=== PATIENT | male | born 1965 | race Two or more races ===

== ENCOUNTER 2022-03-27 16:26 | Inpatient (IN) | payer OTHER, SELFPAY ==
[2022-03-27] VITALS (15 sets, daily range): BP systolic 117–192; BP diastolic 88–116; PULSE 81–98; RESP 12–86; TEMP 36.7–36.9; O2SAT 95–98; BMI 33.5
--- NOTE | ~2022-03-27 | MR_ITS ---
MRI OF THE BRAIN WITHOUT IV CONTRAST INDICATION: Stroke post TPA COMPARISON: Head CT and CTA head and neck 03/27/2022. TECHNIQUE: Multiplanar multisequence MR imaging of the brain was obtained without IV contrast. FINDINGS: There are small acute infarcts within the posterior limb of the right internal capsule and possibly the right insular ribbon. Mild chronic microangiopathy. No mass effect and no hemorrhagic transformation. There is no hydrocephalus, extra-axial surface collection, or herniation. The major flow voids at the skull base are preserved. There is no intracranial hemorrhage on the gradient recalled echo acquisition. The midline structures are normal. The cerebellar tonsils are normally positioned. The cerebellum and brainstem are normal. The craniocervical junction is normal. Osseous marrow signal intensity is homogenous. The visualized soft tissues are unremarkable. MR/MR head/brain wo con IMPRESSION: - There are small acute infarcts within the posterior limb of the right internal capsule and possibly the right insular ribbon. No mass effect and no hemorrhagic transformation. - Mild chronic microangiopathy.
--- NOTE | ~2022-03-27 | XR_ITS ---
EXAMINATION: XR TIBIA AND FIBULA, RIGHT CLINICAL INFORMATION: Pre-MRI foreign body evaluation COMPARISON: None TECHNIQUE: AP and lateral views of the right tibia and fibula were obtained. FINDINGS: There is a 5 mm radiopaque metallic density lateral to the right proximal fibula. This is from remote injury as a child. No additional radiopaque density seen. No visible fracture or dislocation seen. No bony abnormality. XR/XR tibia fibula RT 2V IMPRESSION: 5 mm radiopaque metallic density lateral to the proximal right fibula.
--- NOTE | ~2022-03-27 | CT_ITS ---
EXAMINATION: CT ANGIOGRAM NECK WITH CONTRAST CT ANGIOGRAM BRAIN WITH CONTRAST CLINICAL INFORMATION: Left-sided deficits. Weakness and trouble with speech. COMPARISON: Head CT 03/27/2022. TECHNIQUE: Test bolus sequences followed by intravenous administration 100 mL of Omnipaque 350. Helical imaging was performed in the axial plane from the thoracic inlet to the skull vertex. Delayed postcontrast images were also acquired. The data was processed at the biochemistry technologist workstation for generation of MIP sequences. Angled MIPs and volume rendered reformatted images were also generated at an offline 3D workstation. Stenoses are assessed in accordance with NASCET criteria unless otherwise indicated. This CT examination was performed using dose optimization techniques as appropriate, variously including the following: *Automated exposure control *Adjustment of mA and/or kV according to patient size (this includes techniques or standardized protocols for targeted exams where dose is matched to indication/reason for exam; i.e. extremities or head) *Use of iterative reconstruction technique DLP: 1848 mGy-cm FINDINGS: Head CT: There is no intracranial hemorrhage, large acute infarction, or mass lesion. The ventricles are normal in size and configuration without evidence of hydrocephalus. There is no abnormal enhancement. Mild hypoattenuation is seen within the cerebral white matter, most compatible with mild chronic microangiopathy. There is a large defect within the nasal septum. Mild paranasal sinus mucosal thickening is noted. Neck CTA: Atheromatous changes are seen involving the aortic arch. The great vessel origins are patent. Both carotid bifurcations are patent. Both cervical ICA segments are patent. Atheromatous changes are seen at the carotid siphons without significant stenosis. The left vertebral artery is dominant. Both vertebral arteries are patent. Head CTA: Significant atheromatous changes are seen involving the left vertebral artery resulting in severe stenosis. The hypoplastic right vertebral artery also demonstrates severe stenosis with nonopacification/occlusion at the vertebrobasilar junction. The basilar artery appears patent. There is left SCOOPER. Both systems technologist are patent. The bilateral ACAs and MCAs are patent with symmetric collaterals. No aneurysm is seen. Non-vascular findings: Multilevel degenerative changes are seen within the spine. There is a subcentimeter nodule in the right lobe of the thyroid gland (no ultrasound recommended based on size criteria). The cervical soft tissues are otherwise within normal limits. CT/CT angio head neck stroke IMPRESSION: CT head: No intracranial hemorrhage or large acute infarction. CTA neck: No hemodynamically significant stenosis in the major arteries of the neck. 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 Basilar artery is patent. systems technologist are patent. No evidence of ICA occlusion. Anterior circulation is patent. This critical result was discussed with Dr. Serrano on 03/27/2022 5:53 PM, and it was ascertained that the content and urgency of the report was understood at the time of direct communication.
--- NOTE | ~2022-03-27 | CT_ITS ---
EXAMINATION: CT HEAD WITHOUT CONTRAST (STROKE PROTOCOL) CLINICAL INFORMATION: Stroke protocol. Slurred speech. Left-sided weakness. COMPARISON: None TECHNIQUE: Contiguous axial imaging was performed from the skull base to vertex without intravenous administration of contrast. This CT examination was performed using dose optimization techniques as appropriate, variously including the following: *Automated exposure control *Adjustment of mA and/or kV according to patient size (this includes techniques or standardized protocols for targeted exams where dose is matched to indication/reason for exam; i.e. extremities or head) *Use of iterative reconstruction technique DLP: 780 mGy-cm FINDINGS: There is no evidence of acute intracranial hemorrhage or territorial infarction. No abnormal mass-effect or midline shift is seen. [place] to white matter differentiation is well preserved. No extra-axial fluid collections are identified. There is generalized global volume loss. There is mild prominence of the ventricles and the sulci . There is mild hypodensity of the periventricular white matter due to chronic small vessel ischemic disease. There are vascular calcifications of the internal carotid arteries bilaterally. There is no abnormal attenuation within the brain parenchyma. There is no osseous abnormality. The mastoid air cells and visualized portions of the paranasal sinuses are well-aerated. CT/CT head for stroke IMPRESSION: No acute intracranial pathology. This critical result was discussed with Marciano Quinones at 1730 hours on 03/27/2022. It was ascertained that the content and urgency of the report was understood at the time of direct communication.
--- NOTE | ~2022-03-27 | XR_ITS ---
EXAMINATION: XR CHEST CLINICAL INFORMATION: Stroke. COMPARISON: None TECHNIQUE: Frontal portable view of the chest was obtained. 1738 hours FINDINGS: Lungs are clear. No pulmonary vascular congestion. There is no pleural effusion. The heart size is normal. The cardiac and mediastinal contours are normal. There are calcifications of the thoracic aorta. There are multilevel degenerative changes of dorsal spine. XR/XR chest 1V IMPRESSION: Unremarkable examination.
[2022-03-27 17:10] LABS: Glucose, Whole Blood 445 mg/dL (60-115)
--- NOTE | 2022-03-27 17:10 | ECG_ITS ---
Test Reason : STROKE Blood Pressure : / mmHG Vent. Rate : 091 BPM Atrial Rate : 091 BPM P-R Int : 194 ms QRS Dur : 134 ms QT Int : 386 ms P-R-T Axes : 035 -70 022 degrees QTc Int : 474 ms Normal sinus rhythm Left axis deviation Right bundle branch block Minimal voltage criteria for LVH, may be normal variant ( R in aVL ) Inferior infarct , age undetermined Abnormal ECG No previous ECGs available Referred By: Marciano Serrano Electronically Signed By:JAIME PICKARD
--- NOTE | 2022-03-27 17:17 | ED_ITS ---
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 This started around 1400 hours. Patient has no history of stroke he is diabetic Blood sugar is high. He denies cough fever chest pain nausea vomiting or diarrhea. Patient denies headache or falls. He continues to have left arm leg and speech issues. Onset (ago): hour(s) Related Data Allergies Allergy/AdvReac Type Severity Reaction Status Date / Time No Known Allergies Allergy Verified 03/27/22 17:10 COUNT INCLUDES THE [facility] Past Medical History Medical History (Updated 03/27/22 @ 19:08 by Marciano Serrano DO) Diabetes Hypertension Social History Social History Alcohol intake: current Alcohol intake frequency: a few times a month Alcohol type: hard liquor Patient Tobacco Use Status: Current everyday Tobacco user Smoked in Last 30 Days: Yes Use of substances other than those prescribed or required for medical reasons: No Advance Directives: No Advance Directives Information Provided: No Physical Exam Vital Signs: Vital Signs: Last Vital Signs Temp 98.4 F 03/27/22 17:49 Pulse 87 03/27/22 18:51 Resp 16 03/27/22 18:51 BP 178/103 H 03/27/22 18:51 Pulse Ox 96 03/27/22 18:51 O2 Del Method 03/27/22 18:51 BMI result Body Mass Index 33.5 Neurological exam: CN II- XII tested. Patient is alert and oriented to person place and time. Patient has no dysphagia or dysarthia, denies good vision in all four vision betts no nystagmus on exam,PATIENT WITH OBVIOUS WEAKNESS TO LEFT ARM AND LEG SOME EFFORT AGAINSTwith normal reflexes to brachioradialis, wrist, patella and achilles.? Negative romberg, good finger to nose and heel to bartlett.?? General: Well-appearing well-nourished in no signs of distress HEENT: Normocephalic atraumatic? Neck: No signs of JVD, no masses no tenderness or lymphadenopathy Cardiovascular: Regular rate and rhythm Respiratory: Clear to auscultation bilaterally Abdomen: Soft nontender no masses Extremities: Normal pedal pulses no signs of edema Skin: Dry warm no rashes Back: No tenderness full ROM MDM - Neuro Symptoms/Deficit MDM Narrative Medical decision making narrative: Patient with acute stroke came in as a hyperglycemia for EMs after they found the elevated blood sugar they stopped looking for stroke symptoms while the patients symptoms persisted. He was seen and I immediately wheeled the patient over for CT CTA and will do a complete stroke workup. Symptoms started at 1400 and the patient arrived within the 90 minute window he has no contraindications for stroke. Patient still in the window for stroke I went over the risks and benefits of treatment he states the symptoms started on 1430 after initially stating it was 1400. I think if that is true they are in the 90 minute window TPA was ordered I went over the risks and benefits. 1733 I spoke with [facility] who stated no bleeding on non contrast CT I explained to him I was giving TPA he stated it was safe. [address] Liriano from Neurology who agreed TPA was indicated in this patient. 1745 Patient and family agreed to TPA after CT BP is elevated to 190 I will start on labetol IV at this time. 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 I explained this to the patient and family. 1756 After Labetelol BP within range to give TPA we will initiate at this time. [address]'s okay BP improved. I discussed the case with Eric Sterling in the ICU who accepted the patient. Differential Diagnosis Differential diagnosis: Likely cerebrovascular accident and transient cerebral ischemia Medical Records Attestation: I reviewed the patient's medical records. Lab Data Attestation: I reviewed the patient's lab results. Result diagrams: 03/27/22 17:49 03/27/22 17:49 Labs: Lab Results 03/27/22 03/27/22 03/27/22 Range/Units 17:06 17:43 17:49 WBC 6.7 (4.8-10.8) X10*3/uL RBC 5.59 (4.60-5.80) X10*6/uL Hgb 16.4 (14.0-18.0) g/dl Hct 45.5 (42.0-52.0) % MCV 81.4 (80.0-98.0) fL MCH 29.3 (27.0-33.0) pg MCHC 36.0 (31.0-36.0) g/dl RDW 11.8 (11.0-16.0) % Plt Count 203 (160-400) X10*3/uL MPV 8.6 L (9.4-12.4) fL Immature Gran % (Auto) 0.3 (0.0-0.4) % Neut % (Auto) 71.7 (45-73) % Lymph % (Auto) 15.8 L (20-40) % [place] % (Auto) 6.4 (2-11) % Eos % (Auto) 5.1 H (0-4) % Baso % (Auto) 0.7 (0-2) % Lymph # (Auto) 1.1 L (1.2-4.9) X10*3/uL [place] # (Auto) 0.4 (0.1-1.2) X10*3/uL Eos # (Auto) 0.3 (0.0-0.4) X10*3/uL Baso # (Auto) 0.1 (0.0-0.2) X10*3/uL Abs Immat Gran (auto) 0.02 (0.00-0.03) X10*3/uL Absolute Neuts (auto) 4.8 (2.0-8.3) x10*3/uL Absolute Nucleated RBC 0.000 (0.0-0.012) X10*3/uL Nucleated RBC % (auto) 0.0 (0.0-0.2) /100WBC PT (10.0-13.1) SEC Whole Blood PT 12.5 (11.1-13.5) sec INR (0.9-1.1) Whole Blood INR 1.0 (0.9-1.1) APTT (26.0-36.4) SEC Sodium (135-145) mmol/L Potassium (3.3-5.1) mmol/L Chloride (96-108) mmol/L Carbon Dioxide (22-29) mmol/L Anion Gap (12-20) BUN (9-16) mg/dL Creatinine (0.5-1.4) mg/dL Estim Creat Clear Calc Estimated GFR POC Glucose 445 H* (60-115) mg/dL Random Glucose (60-115) mg/dL Calcium (8.4-10.2) mg/dL Magnesium (1.6-2.6) mg/dL Total Bilirubin (0.0-1.0) mg/dL Direct Bilirubin (0.0-0.5) mg/dL AST (5-37) U/L ALT (0-40) U/L Alkaline Phosphatase (39-117) U/L Total Creatine Kinase (38-174) U/L Troponin I High Sens (<3.5-35.0) ng/L Total Protein (6.5-8.0) g/dL Albumin (3.5-5.0) g/dL Urine Color Urine Appearance Urine pH (5.0-9.0) Ur Specific [place] (1.005-1.025) Urine Protein (Neg-Trace) mg/dL Urine Glucose (UA) (Negative) mg/dL Urine Ketones (Negative) mg/dL Urine Blood (Negative) Urine Nitrite (Negative) Ur Leukocyte Esterase (Negative) Urine RBC (0-2) /HPF Urine WBC (0-5) /HPF Ur Squamous Epith Cells (0-2) /HPF Urine Bacteria (None Seen) Hyaline Casts (0-2) /LPF 03/27/22 03/27/22 03/27/22 Range/Units 17:49 17:49 17:49 WBC (4.8-10.8) X10*3/uL RBC (4.60-5.80) X10*6/uL Hgb (14.0-18.0) g/dl Hct (42.0-52.0) % MCV (80.0-98.0) fL MCH (27.0-33.0) pg MCHC (31.0-36.0) g/dl RDW (11.0-16.0) % Plt Count (160-400) X10*3/uL MPV (9.4-12.4) fL Immature Gran % (Auto) (0.0-0.4) % Neut % (Auto) (45-73) % Lymph % (Auto) (20-40) % [place] % (Auto) (2-11) % Eos % (Auto) (0-4) % Baso % (Auto) (0-2) % Lymph # (Auto) (1.2-4.9) X10*3/uL [place] # (Auto) (0.1-1.2) X10*3/uL Eos # (Auto) (0.0-0.4) X10*3/uL Baso # (Auto) (0.0-0.2) X10*3/uL Abs Immat Gran (auto) (0.00-0.03) X10*3/uL Absolute Neuts (auto) (2.0-8.3) x10*3/uL Absolute Nucleated RBC (0.0-0.012) X10*3/uL Nucleated RBC % (auto) (0.0-0.2) /100WBC PT 10.9 (10.0-13.1) SEC Whole Blood PT (11.1-13.5) sec INR 1.0 (0.9-1.1) Whole Blood INR (0.9-1.1) APTT 30.6 (26.0-36.4) SEC Sodium 136 (135-145) mmol/L Potassium 4.0 (3.3-5.1) mmol/L Chloride 97 (96-108) mmol/L Carbon Dioxide 30 H (22-29) mmol/L Anion Gap 13 (12-20) BUN 5 L (9-16) mg/dL Creatinine 1.18 (0.5-1.4) mg/dL Estim Creat Clear Calc 85.6 Estimated GFR > 60 POC Glucose (60-115) mg/dL Random Glucose 435 H* (60-115) mg/dL Calcium 8.9 (8.4-10.2) mg/dL Magnesium 1.9 (1.6-2.6) mg/dL Total Bilirubin 0.6 (0.0-1.0) mg/dL Direct Bilirubin 0.3 (0.0-0.5) mg/dL AST 20 (5-37) U/L ALT 20 (0-40) U/L Alkaline Phosphatase 113 (39-117) U/L Total Creatine Kinase 61 (38-174) U/L Troponin I High Sens 19.3 (<3.5-35.0) ng/L Total Protein 6.4 L (6.5-8.0) g/dL Albumin 3.8 (3.5-5.0) g/dL Urine Color Urine Appearance Urine pH (5.0-9.0) Ur Specific [place] (1.005-1.025) Urine Protein (Neg-Trace) mg/dL Urine Glucose (UA) (Negative) mg/dL Urine Ketones (Negative) mg/dL Urine Blood (Negative) Urine Nitrite (Negative) Ur Leukocyte Esterase (Negative) Urine RBC (0-2) /HPF Urine WBC (0-5) /HPF Ur Squamous Epith Cells (0-2) /HPF Urine Bacteria (None Seen) Hyaline Casts (0-2) /LPF 03/27/22 Range/Units 18:23 WBC (4.8-10.8) X10*3/uL RBC (4.60-5.80) X10*6/uL Hgb (14.0-18.0) g/dl Hct (42.0-52.0) % MCV (80.0-98.0) fL MCH (27.0-33.0) pg MCHC (31.0-36.0) g/dl RDW (11.0-16.0) % Plt Count (160-400) X10*3/uL MPV (9.4-12.4) fL Immature Gran % (Auto) (0.0-0.4) % Neut % (Auto) (45-73) % Lymph % (Auto) (20-40) % [place] % (Auto) (2-11) % Eos % (Auto) (0-4) % Baso % (Auto) (0-2) % Lymph # (Auto) (1.2-4.9) X10*3/uL [place] # (Auto) (0.1-1.2) X10*3/uL Eos # (Auto) (0.0-0.4) X10*3/uL Baso # (Auto) (0.0-0.2) X10*3/uL Abs Immat Gran (auto) (0.00-0.03) X10*3/uL Absolute Neuts (auto) (2.0-8.3) x10*3/uL Absolute Nucleated RBC (0.0-0.012) X10*3/uL Nucleated RBC % (auto) (0.0-0.2) /100WBC PT (10.0-13.1) SEC Whole Blood PT (11.1-13.5) sec INR (0.9-1.1) Whole Blood INR (0.9-1.1) APTT (26.0-36.4) SEC Sodium (135-145) mmol/L Potassium (3.3-5.1) mmol/L Chloride (96-108) mmol/L Carbon Dioxide (22-29) mmol/L Anion Gap (12-20) BUN (9-16) mg/dL Creatinine (0.5-1.4) mg/dL Estim Creat Clear Calc Estimated GFR POC Glucose (60-115) mg/dL Random Glucose (60-115) mg/dL Calcium (8.4-10.2) mg/dL Magnesium (1.6-2.6) mg/dL Total Bilirubin (0.0-1.0) mg/dL Direct Bilirubin (0.0-0.5) mg/dL AST (5-37) U/L ALT (0-40) U/L Alkaline Phosphatase (39-117) U/L Total Creatine Kinase (38-174) U/L Troponin I High Sens (<3.5-35.0) ng/L Total Protein (6.5-8.0) g/dL Albumin (3.5-5.0) g/dL Urine Color Yellow Urine Appearance Clear Urine pH 7.0 (5.0-9.0) Ur Specific [place] >= 1.030 H (1.005-1.025) Urine Protein Negative (Neg-Trace) mg/dL Urine Glucose (UA) >=1000 H (Negative) mg/dL Urine Ketones Negative (Negative) mg/dL Urine Blood Negative (Negative) Urine Nitrite Negative (Negative) Ur Leukocyte Esterase Negative (Negative) Urine RBC 0-2 (0-2) /HPF Urine WBC 0-5 (0-5) /HPF Ur Squamous Epith Cells 0-2 (0-2) /HPF Urine Bacteria None Seen (None Seen) Hyaline Casts 0-2 (0-2) /LPF ECG Data Attestation: I personally reviewed and interpreted this ECG as follows: NIH Stroke Scale Internal: Initial- Upon Arrival Level of Consciousness: Alert Level of Consciousness Questions: Answers both questions correctly Level of Consciousness Commands: Performs both tasks correctly Best Gaze: Normal Visual: No visual loss Facial Palsy: Normal Motor Arm (Right): No drift Motor Arm (Left): Some effort against gravity Motor Leg (Right): No drift Motor Leg (Left): Some effort against gravity Limb Ataxia: Present in two limbs Sensory: Mild to moderate sensory loss Best Language: Mild to moderate aphasia Dysarthia: Mild to moderate dysarthria Extinction and Inattention: No abnormality Score: 9 Critical Care Time Critical Care Time Critical Care Time: Yes Total Critical Care Time: 85 Attestation: Acute CVA with changed speech, left arm and leg weakness. Spoke with Neurology radiology about stroke and CT reads. BP controlled emergently and I went over TPA indication contraindications and intiated within the window. Disposition with ICu Discharge Plan Discharge Clinical Impression: Left-sided sensory deficit present, Acute left-sided weakness, Difficulty with speech, Dysarthria, Acute stroke due to ischemia Patient Disposition: Admitted as Observation
[2022-03-27] MEDS: iohexoL 350 MG/ML 100 ML INFUS..BTL IV (17:28)
[2022-03-27] MEDS: Labetalol HCL 100 MG/20 ML VIAL 20 MG IVPUSH (17:50)
[2022-03-27 17:59] LABS: MANUAL DIFF FLAG NO
[2022-03-27 18:02] LABS: Basophils Absolute Auto 0.1 X10*3/uL (0.0-0.2); Basophils Percent Auto 0.7 % (0-2); Eosinophils Absolute Auto 0.3 X10*3/uL (0.0-0.4); Eosinophils Percent Auto 5.1 % (0-4); Hematocrit 45.5 % (42.0-52.0); Hemoglobin 16.4 g/dl (14.0-18.0); Imm Gran Abs Auto 0.02 X10*3/uL (0.00-0.03); Imm Gran Pct Auto 0.3 % (0.0-0.4); Lymphocytes Absolute Auto 1.1 X10*3/uL (1.2-4.9); Lymphocytes Percent Auto 15.8 % (20-40); Mean Corpuscular Hemoglobin 29.3 pg (27.0-33.0); Mean Corpuscular Volume 81.4 fL (80.0-98.0); Mean Platelet Volume 8.6 fL (9.4-12.4); Monocytes Absolute Auto 0.4 X10*3/uL (0.1-1.2); Monocytes Percent Auto 6.4 % (2-11); Neutrophils Absolute Auto 4.8 x10*3/uL (2.0-8.3); Neutrophils Percent Auto 71.7 % (45-73); Platelet Count 203 X10*3/uL (160-400); Red Blood Count 5.59 X10*6/uL (4.60-5.80); Red Cell Distribution Width 11.8 % (11.0-16.0); White Blood Count 6.7 X10*3/uL (4.8-10.8)
[2022-03-27 18:03] LABS: Prothrombin Time Whole Bld POC 12.5 sec (11.1-13.5)
[2022-03-27 18:09] LABS: Prothrombin Time 10.9 SEC (10.0-13.1)
[2022-03-27 18:12] LABS: Partial Thromboplastin Time 30.6 SEC (26.0-36.4)
--- NOTE | 2022-03-27 18:14 | PC.NURSE ---
pt a&ox3, pt to CT per stroke protocol, hypertensive, 20G IV left AC placed by EMS, given labetalol per provider order, bp within t-PA parameters after administration, t-PA bolus given on 1 min, infusion running over 60 min. labs drawn by tech, no new orders at this time.
[2022-03-27 18:16] LABS: Stroke Lab Use COMPLETE
[2022-03-27 18:25] LABS: Alanine Aminotransferase 20 U/L (0-40); Albumin Level 3.8 g/dL (3.5-5.0); Alkaline Phosphatase 113 U/L (39-117); Anion Gap 13 (12-20); Aspartate Amino Transferase 20 U/L (5-37); Bilirubin Direct 0.3 mg/dL (0.0-0.5); Bilirubin Total 0.6 mg/dL (0.0-1.0); Blood Urea Nitrogen 5 mg/dL (9-16); Calcium 8.9 mg/dL (8.4-10.2); Carbon Dioxide 30 mmol/L (22-29); Chloride 97 mmol/L (96-108); Creatinine Clr Calc Pharmacy 85.6; Estimated Glomerular Filt Rate > 60; Glucose Random 435 mg/dL (60-115); Magnesium 1.9 mg/dL (1.6-2.6); Sodium 136 mmol/L (135-145); Total Protein 6.4 g/dL (6.5-8.0); Troponin-I High Sensitivity 19.3 ng/L (<3.5-35.0)
[2022-03-27 18:40] LABS: Appearance Urine Clear; Color Urine Yellow; Glucose Urine UA >=1000 mg/dL (Negative); Leukocyte Esterase Urine Negative (Negative); Nitrite Urine Negative (Negative); Specific Gravity - Urine >= 1.030 (1.005-1.025); UMIC TRIGGER UACC YES; Urine Blood Negative (Negative); Urine Ketones Negative (Negative); Urine Protein Negative (Neg-Trace)
[2022-03-27 18:49] LABS: Bacteria Urine None Seen (None Seen); Hyaline Casts Urine 0-2 /LPF (0-2); RBC Urine 0-2 /HPF (0-2); Squamous Epithelial Cell Urine 0-2 /HPF (0-2); WBC Urine 0-5 /HPF (0-5)
[2022-03-27] MEDS: Insulin Lispro 100 UNIT/ML 3 ML VIAL SUBCUT (19:11)
[2022-03-27] MEDS: 0.9 % Sodium Chloride 1,000 ML 999 ML IVCONT ×2 (19:12→20:03)
--- NOTE | 2022-03-27 19:31 | PHA.MEDREC ---
MED REC COMPLETE, PATIENT NOT ON ANY MEDICATIONS. HE DOES NOT CURRENTLY HAVE A PRIMARY CARE DOCTOR AND WILL NEED TO OBTAIN ONE Pharmacy Consult ? Medication Reconciliation Pharmacy has completed the medication reconciliation.
--- NOTE | 2022-03-27 20:37 | PM.CCHP ---
History of Present Illness Date of Service: 03/27/22 Attending physician on admission: Magno Brown Chief Complaint: Ischemic stroke post tPA HPI: ?56-year-old Patient with underlying history of hypertension, hyperlipidemia, diabetes, noncompliance with medication intake or medical care, who has a 40 pack-year history of tobacco consumption, drinks alcohol on the weekends, presents to us after being seen in the emergency room.? 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 The patient drove from [place] to [place] and went home feeling this way even though he had difficulty lifting the left upper extremity as well as the left lower extremity.? His sister noticed that he was not himself and called 911.? The patient was transferred via EMS to the hospital, he arrived around 17:00 his blood pressure was slightly elevated receive labetalol. ?His workup included a CT scan of the head, CTA head and neck all of which showed no hemorrhage and no large emboli.? At the time the NIH score was 8.? Dr. Napier was consulted the patient received tPA at 17:56.? His blood sugar was over 400, he was given IV insulin. ? Since tPA administration, the patient has being significantly better, he states that his strength has come back he feels much better than before.? During my interview the patient denies any double or blurred vision, headache, no more numbness or tingling, no trouble speaking, denies any other symptomatology at this point as described below.? He does admit that he is noncompliant with his medications, he continues to drink on the weekends and smokes daily. ? Review of systems: As above, otherwise the patient denies any prior history of strokes, cold intolerance, migraine headaches, head trauma, no eyes, ears or nose problems, no problems swallowing or with phonation, no thyroid disease, denies any history of chest pain, palpitations, coronary disease, cough, sputum production, pneumonia, bronchitis, COPD or emphysema, abdominal pain, nausea, vomiting, diarrhea, abdominal surgeries, melena, hematochezia, hematemesis, hematuria, kidney stones, liver problems, immunocompromise state of any kind, no history of DVT or PE, leg edema, fractures or extremity surgeries all other review of systems were reviewed and they were all negative. Past Medical History:? As above Past Surgical History:? None Family history:? Noncontributory for coronary disease, diabetes, hypertension, strokes or cancer. Social History:? Lives at home, has a 30 pack-year history of tobacco consumption, still smokes a pack a day.? Drinks 6-8 nips on the weekends.? Denies drugs. CODE STATUS: FULL CODE Allergies: NKDA Home Medications: See Med Rec PHYSICAL EXAM: VS: ?146/110, 85, 14, 96 % on room air. General:? Alert oriented x3 no acute distress.? Speaking full sentences.? Speech is well articulated, thought process is coherent.? Following all commands.? There is no dysarthria. Skin:? Intact, no lesions, edema, erythema, clubbing or cyanosis.? No ulcers. HEENT: ?No facial drooping appreciated, Head is normocephalic, atraumatic, pupils equal round reactive to light accommodation bilaterally.? Extraocular movements appear intact.? Visual betts by confrontation are equal bilaterally without deficits.? Buccal mucosa is moist, tongue protrudes midline with slight deviation of the tip towards the left., Neck is supple without lymphadenopathy. Cardiac:? Clear S1-S2, no murmurs rubs or gallops. Pulmonary:? Clear to auscultation, no wheezes, rales or rhonchi. Abdomen:? Protuberant, positive bowel sounds in all 4 quadrants.? Soft, nontender, no rebound or guarding.? Musculoskeletal:? Moving all 4 extremities upon request a major joints, there is no crepitus or tenderness.? The strength is 5/5 bilaterally and throughout all 4 extremities.? There is no leg edema , no calf tenderness , no leg asymmetry.? His still having difficulty standing he does show weakness upon trying to bear weight with the left lower extremity.? Walking was not attempted at this point. Neurologic:? As above, cranial nerves 2-12 are grossly intact.? He does however have difficulty standing as above mentioned.? Coordination is also impaired with the left upper extremity upon [id number] test, to a lesser degree with [id number].? Sensation is intact throughout whole body with sharp and dull. Vascular:? 2+ pulses upper and lower extremities distally. SIGNIFICANT LABORATORY DATA:? White blood cells 6.7, hemoglobin 16.4, hematocrit 45.5, platelets 203, INR 1.0.? Sodium 136, potassium 4.0, chloride 97, carbon dioxide 30, anion gap 13, BUN 5, creatinine 1.18.? Random glucose 435.? Liver function within normal limits.? Magnesium 1.9.? Troponin 19.3. ? 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 Basilar artery is patent. justice court deputy clerk are patent. No evidence of ICA occlusion. Anterior circulation is patent.? No hemodynamically significant stenosis of the major arteries of the neck.? No intracranial hemorrhage or large acute infarction. EKG REVIEW: ?Sinus rhythm 91 beats per minute.? No ST elevations, no depressions.? Left axis deviation with criteria for right bundle-branch block.? Age-indeterminate changes in the inferior leads.? QTC 386.? No comparison. ASSESSMENT : 1. Acute ischemic stroke with left-sided hemiparesis which has improved status post tPA 2. 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 Medical noncompliance 4. Uncontrolled hypertension and noncompliance 5. Uncontrolled diabetes mellitus type 2 with noncompliance 6. History of hyperlipidemia 7. Tobacco and alcohol abuse PLAN OF CARE: The patient has improved significantly, he will be transferred to the ICU for further monitoring and will follow post tPA protocol including liberalized blood pressure.? Swallow test to be done at bedside by nursing personnel and will start him on a statin.? No NSAIDs or aspirin related products for the next 24 hours.? MRI to follow 24 hours after tPA administration, transthoracic echo.? Will order hemoglobin A1c and place him on insulin sliding scale for now.? Maximize Lipitor, check lipid panel in the morning and LFTs. I had a lengthy discussion with the patient about his current situation and all the different risk factors that he takes including the medical noncompliance, tobacco and alcohol abuse, lifestyle changes were advise in detailed with the patient including weight loss, exercise, tobacco and alcohol consumption cessation which he stated ?I will think about it ?. Patient needs a primary care provider in the community as he does not have 1.? Eventually he will need to be restarted on a diabetic, hypertensive regimen. At this point he declined Nicoderm patches. GI PROPHYLAXIS: ?No needed DVT PROPHYLAXIS:? Pneumatic stockings only Critical care time used for critical evaluation of this patient, diagnosis, treatment and coordination of care, review her records and documentation TOTAL CRITICAL CARE TIME? 90? MIN . discussion and coordination with consultants, completely separate from any procedures performed. Patient's care was discussed in detail with Dr. Brown.? He is aware of all the above as well as the plan of care for this patient. [facility] Past Medical History Medical History (Updated 03/27/22 @ 19:08 by Marciano Serrano DO) Diabetes Hypertension Social History Social History Alcohol intake: current Alcohol intake frequency: a few times a month Alcohol type: hard liquor Patient Tobacco Use Status: Current everyday Tobacco user Smoked in Last 30 Days: Yes Use of substances other than those prescribed or required for medical reasons: No Advance Directives: No Advance Directives Information Provided: No Meds Allergies Allergy/AdvReac Type Severity Reaction Status Date / Time No Known Allergies Allergy Verified 03/27/22 17:10 Active Medications: Current Medications Atorvastatin Calcium (Atorvastatin Calcium 80 Mg Tablet) 80 mg PO BEDTIME DEMETRIS Dextrose (Dextrose 50 % 25 Gm/50 Ml Syringe) 25 gm IVPUSH Q15M PRN; Protocol PRN Reason: per Hypoglycemia Standing Ord. Glucose (Glucose Gel 15 Gm Gel..Gram.) 15 gm PO Q15M PRN; Protocol PRN Reason: per Hypoglycemia Standing Ord. Insulin Human Lispro (Insulin Lispro 100 Unit/Ml 3 Ml Vial) 0 unit SUBCUT Q6H DEMETRIS; Protocol Sodium Chloride (0.9 % Sodium Chloride Flush 3 Ml Syringe) 3 ml IVFLUSH QSHIFT [facility] Home Medications Medication Instructions Recorded Confirmed Last Taken Type No Known Home Meds 03/27/22 03/27/22 Unknown History Physical Exam Vital Signs: Vital Signs: Last Vital Signs Temp 98.4 F 03/27/22 17:49 Pulse 85 03/27/22 20:00 Resp 86 H 03/27/22 20:20 BP 179/106 H 03/27/22 20:20 Pulse Ox 95 03/27/22 20:20 O2 Del Method 03/27/22 20:20 BMI result Body Mass Index 33.5 Results Labs CBC and Chem 7: 03/27/22 17:49 03/27/22 17:49 Labs: Laboratory Results - last 24 hr 03/27/22 03/27/22 03/27/22 17:06 17:43 17:49 MCV 81.4 MCH 29.3 MCHC 36.0 RDW 11.8 Plt Count 203 MPV 8.6 L Immature Gran % (Auto) 0.3 Neut % (Auto) 71.7 Lymph % (Auto) 15.8 L [place] % (Auto) 6.4 Eos % (Auto) 5.1 H Baso % (Auto) 0.7 Lymph # (Auto) 1.1 L [place] # (Auto) 0.4 Eos # (Auto) 0.3 Baso # (Auto) 0.1 Abs Immat Gran (auto) 0.02 Absolute Neuts (auto) 4.8 Absolute Nucleated RBC 0.000 Nucleated RBC % (auto) 0.0 PT Whole Blood PT 12.5 INR Whole Blood INR 1.0 APTT Anion Gap Estim Creat Clear Calc Estimated GFR POC Glucose 445 H* Random Glucose Calcium Magnesium Total Bilirubin Direct Bilirubin AST ALT Alkaline Phosphatase Total Creatine Kinase Troponin I High Sens Total Protein Albumin Urine Color Urine Appearance Urine pH Ur Specific [place] Urine Protein Urine Glucose (UA) Urine Ketones Urine Blood Urine Nitrite Ur Leukocyte Esterase Urine RBC Urine WBC Ur Squamous Epith Cells Urine Bacteria Hyaline Casts 03/27/22 03/27/22 03/27/22 17:49 17:49 17:49 MCV MCH MCHC RDW Plt Count MPV Immature Gran % (Auto) Neut % (Auto) Lymph % (Auto) [place] % (Auto) Eos % (Auto) Baso % (Auto) Lymph # (Auto) [place] # (Auto) Eos # (Auto) Baso # (Auto) Abs Immat Gran (auto) Absolute Neuts (auto) Absolute Nucleated RBC Nucleated RBC % (auto) PT 10.9 Whole Blood PT INR 1.0 Whole Blood INR APTT 30.6 Anion Gap 13 Estim Creat Clear Calc 85.6 Estimated GFR > 60 POC Glucose Random Glucose 435 H* Calcium 8.9 Magnesium 1.9 Total Bilirubin 0.6 Direct Bilirubin 0.3 AST 20 ALT 20 Alkaline Phosphatase 113 Total Creatine Kinase 61 Troponin I High Sens 19.3 Total Protein 6.4 L Albumin 3.8 Urine Color Urine Appearance Urine pH Ur Specific [place] Urine Protein Urine Glucose (UA) Urine Ketones Urine Blood Urine Nitrite Ur Leukocyte Esterase Urine RBC Urine WBC Ur Squamous Epith Cells Urine Bacteria Hyaline Casts 03/27/22 18:23 MCV MCH MCHC RDW Plt Count MPV Immature Gran % (Auto) Neut % (Auto) Lymph % (Auto) [place] % (Auto) Eos % (Auto) Baso % (Auto) Lymph # (Auto) [place] # (Auto) Eos # (Auto) Baso # (Auto) Abs Immat Gran (auto) Absolute Neuts (auto) Absolute Nucleated RBC Nucleated RBC % (auto) PT Whole Blood PT INR Whole Blood INR APTT Anion Gap Estim Creat Clear Calc Estimated GFR POC Glucose Random Glucose Calcium Magnesium Total Bilirubin Direct Bilirubin AST ALT Alkaline Phosphatase Total Creatine Kinase Troponin I High Sens Total Protein Albumin Urine Color Yellow Urine Appearance Clear Urine pH 7.0 Ur Specific [place] >= 1.030 H Urine Protein Negative Urine Glucose (UA) >=1000 H Urine Ketones Negative Urine Blood Negative Urine Nitrite Negative Ur Leukocyte Esterase Negative Urine RBC 0-2 Urine WBC 0-5 Ur Squamous Epith Cells 0-2 Urine Bacteria None Seen Hyaline Casts 0-2 Imaging Radiologist's Impressions: Impressions Head CT 03/27/22 17:19 IMPRESSION: No acute intracranial pathology. This critical result was discussed with Marciano Quinones at 1730 hours on 03/27/2022. It was ascertained that the content and urgency of the report was understood at the time of direct communication. Head/Neck CTA 03/27/22 17:28 IMPRESSION: CT head: No intracranial hemorrhage or large acute infarction. CTA neck: No hemodynamically significant stenosis in the major arteries of the neck. 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 Basilar artery is patent. justice court deputy clerk are patent. No evidence of ICA occlusion. Anterior circulation is patent. This critical result was discussed with Dr. Serrano on 03/27/2022 5:53 PM, and it was ascertained that the content and urgency of the report was understood at the time of direct communication. Chest X-Ray 03/27/22 17:39 IMPRESSION: Unremarkable examination.
[2022-03-27 21:24] LABS: Glucose, Whole Blood 303 mg/dL (60-115)
--- NOTE | 2022-03-27 21:35 | PC.NURSE ---
attempted to call in report to ICU - will call back.
[2022-03-27] MEDS: Atorvastatin Calcium 80 MG TABLET PO (21:40)
--- NOTE | 2022-03-27 22:03 | PC.NURSE ---
RN-RN report called into ICU.
[2022-03-28] VITALS (15 sets, daily range): BP systolic 133–188; BP diastolic 69–108; PULSE 78–90; RESP 11–20; TEMP 36.6–37.6; O2SAT 93–97
[2022-03-28 00:31] LABS: Glucose, Whole Blood 329 mg/dL (60-115)
[2022-03-28] MEDS: Insulin Lispro 100 UNIT/ML 3 ML VIAL SUBCUT ×4 (00:57→21:27)
[2022-03-28] MEDS: 0.9 % Sodium Chloride Flush 3 ML SYRINGE IVFLUSH ×2 (01:01→07:57)
[2022-03-28 05:21] LABS: Estimated Average Glucose 309 mg/dL; Hemoglobin A1c % 12.4 %
[2022-03-28 05:35] LABS: Glucose, Whole Blood 256 mg/dL (60-115)
[2022-03-28 06:09] LABS: MANUAL DIFF FLAG NO
[2022-03-28 06:18] LABS: Basophils Percent Auto 0.6 % (0-2); Eosinophils Absolute Auto 0.5 X10*3/uL (0.0-0.4); Eosinophils Percent Auto 6.2 % (0-4); Hematocrit 40.7 % (42.0-52.0); Hemoglobin 14.8 g/dl (14.0-18.0); Imm Gran Abs Auto 0.03 X10*3/uL (0.00-0.03); Imm Gran Pct Auto 0.4 % (0.0-0.4); Lymphocytes Absolute Auto 1.1 X10*3/uL (1.2-4.9); Lymphocytes Percent Auto 15.5 % (20-40); Mean Corpuscular HGB Conc 36.4 g/dl (31.0-36.0); Mean Corpuscular Hemoglobin 29.7 pg (27.0-33.0); Mean Corpuscular Volume 81.7 fL (80.0-98.0); Mean Platelet Volume 8.8 fL (9.4-12.4); Monocytes Absolute Auto 0.6 X10*3/uL (0.1-1.2); Monocytes Percent Auto 8.2 % (2-11); Neutrophils Percent Auto 69.1 % (45-73); Platelet Count 164 X10*3/uL (160-400); Red Blood Count 4.98 X10*6/uL (4.60-5.80); Red Cell Distribution Width 11.8 % (11.0-16.0); White Blood Count 7.2 X10*3/uL (4.8-10.8)
[2022-03-28 06:29] LABS: Anion Gap 14 (12-20); Blood Urea Nitrogen 6 mg/dL (9-16); Calcium 8.6 mg/dL (8.4-10.2); Carbon Dioxide 26 mmol/L (22-29); Chloride 103 mmol/L (96-108); Cholesterol 179 mg/dL; Creatinine Clr Calc Pharmacy 131.2; Estimated Glomerular Filt Rate > 60; Glucose Random 261 mg/dL (60-115); HDL Cholesterol 36 mg/dL; LDL Cholesterol Calculated 106 mg/dl; Potassium 3.6 mmol/L (3.3-5.1); Sodium 139 mmol/L (135-145); Triglycerides 186 mg/dL
--- NOTE | 2022-03-28 07:00 | CA_ITS ---
Transthoracic Echocardiogram Patient (Last, First, Middle): Brett Bal, Gender: Male Date of : 1965 Age: 56 Procedure Date: 03/28/2022 Procedure Type: Transthoracic Echocardiogram Location: ICU Height: 180.34 cm Weight: 108.86 kg BSA: 2.28 m2 Heart Rate: bpm BP: 167 / 97 mmHg [employer]: PILAR Referring MD: Eric TUTTLE Commission Clerk: Robert Hatch MD Symptoms: stroke Study Quality: Fair ECG Rhythm: Sinus Conclusions: - 1. Low normal LV systolic function with moderate LVH with grade 1 diastolic dysfunction 2. Normal cardiac valvular Doppler 3. Normal RV systolic pressure 4. Mildly dilated ascending aorta at 4.3 cm 5. No gross pericardial effusion Findings Left Ventricle Normal left ventricular cavity size. There is moderately increased left ventricular wall thickness. The left ventricular systolic function is normal. The visually estimated ejection fraction is between 50-55%. Spectral Doppler is indicative of an impaired relaxation filling pattern. E/E prime ratio is <8, consistent with normal filling pressures. Evidence suggests grade I (mild) diastolic dysfunction. Wall Motion Rest Echo Findings The basal inferior segment is hypokinetic. All other scored wall segments showed normal motion. Right Ventricle Normal right ventricular cavity size and systolic function. Atria The left atrium is normal in size. Interatrial shunt cannot be excluded. The right atrium is normal in size. Aortic Valve Normal aortic valve structure and function. There is no aortic valve stenosis. There is no aortic valve regurgitation. Mitral Valve Normal mitral valve structure and function. There is trace mitral valve regurgitation. There is no mitral valve stenosis. Pulmonic Valve The pulmonic valve was not well visualized. Tricuspid Valve Likely normal tricuspid valve structure and function. There is trace tricuspid valve regurgitation. The right ventricular systolic pressure is normal. The right ventricular systolic pressure is 19 mmHg. Normal right atrial pressure. There is no evidence of pulmonary hypertension. Great Vessels The pulmonary artery was not well visualized. There is mild dilatation of the ascending aorta measuring 4.30 cm. Venous The inferior vena cava is normal in size and collapses greater than 50% with inspiration. Pericardium/Pleural There is no evidence of pericardial effusion. Prior Study Comparison No prior study available for comparison. Recommendations, Care & Conclusions Consider a ZAIRE if clinically appropriate. Recommend contrast study to evaluate intracardiac shunting. Measurements 2D Linear Measurements IVSd: 1.53 0.6-0.9/0.6-1.0 cm LVIDd: 4.62 3.9-5.3/4.2-5.9 cm LVIDd Index: 2.03 2.4-3.2/2.2-3.1 cm/m2 LVIDs: 3.15 2.0-3.6 cm LVPWd: 1.51 0.7-1.1 cm Ao Root: 3.80 2.1-3.5 cm LA Diam: 4.10 2.7-3.8/3.0-4.0 cm LAIDs Index: 1.80 1.5-2.3 cm/m2 LV Mass: 364.88 67-162/88-224 g LV Mass Index: 160.03 43-95/49-115 g/m2 LVOT Diam: 2.40 3.0+(-)1.3 cm 2D Systolic Function EF 4C: 53.30 >55% EF 2C: 47.90 >55% Mitral Valve MV Pk E: 0.54 MV PK A: 0.81 MV Decel Time: 136.00 E/A: 0.70 E'Lateral: 5.66 E'Medial: 4.79 E/E' Med: 11.30 E/E' Lat: 9.50 PHT: 40.00 MVA PHT: 5.50 Decel Bullock: 3.98 Aortic Valve AoV Pk Audie: 1.53 AoV Mn Audie: 1.08 AoV VTI: 0.26 AoV Pk Grad: 9.00 Aov Mn Grad: 5.00 ORNY Cont.VTI: 2.69 LVOT LVOT Pk Audie: 0.89 LVOT Mn Audie: 0.59 LVOT VTI: 0.16 LVOT Pk Grad: 3.00 LVOT Mn Grad: 2.00 LVOT Diam: 2.40 LVOT Area: 4.52 Diastolic Function MV Pk E: 0.54 MV Pk A: 0.81 E/A: 0.70 E'Medial: 4.79 E/E' Med: 11.30 E' Laterial: 5.66 E/E' Lat: 9.50 Right Ventricle TAPSE (mm): 18.00 TVS' Audie: 13.00 Tricuspid Valve TR Pk Audie: 2.00 TR Pk Grad: 16.00 RA Press: 3.00 RVSP: 19.00 Great Vessels Aorta Ao Root-2D: 3.80 2.0-3.7 cm Ao Asc: 4.30 2.1-3.4 cm Pulmonary Valve PV Pk Audie: 1.23 Peak PV Grad: 6.00 Updated in Other Vendor System with Status of Final Robert Hatch MD electronically signed on 03/28/2022 3:30:40 PM with status of Final
--- NOTE | 2022-03-28 11:02 | MHC.STROKE ---
Addendum entered by Briana Ledezma RN 03/28/22 13:04: MRI REVIEWED WITH DR. HILL, + ISCHEMIC STROKE, OFFICAL RADIOLOGY READ NOT IN THE SYSTEM YET, RECOMMENDATIONS IN HIS NOTE, CONTINUE WITH FOUNDER CEO & PRESIDENT FOR 24 MORE HOURS, CAN START ANTIPLATELET TONIGHT 03/28/22 AT 1800. COMPRESSION BOOTS ON BUT HE WAS CURRENTLY ASKING TO HAVE THEM TAKEN OFF. CLEARED BY PT THEREFORE HE CAN AMBULATE FOR VTE PROPHYLAXIS. ALL OTHER MEASURES IN PLACE. I MET WITH PATIENT AGAIN AND REVIEWED THE RESULTS AND STRESSED THE IMPORTANCE OF FOLLOWING UP WITH HIS PCP AND CONTROLLLING HIS RISK FACTORS TO AVOID ANOTHER STROKE. Original Note: 03/27/22 EMS PRE-NOTIFIED 1622, REPORTED TO ME NO STROKE ALERT CALLED ARRIVED AT 1626. EMS POC 537, BP 176/108. SYMPTOM ONSET 1430 NIHSS = 9, LA,LL, ATAXIA, DYSPHAGIA, APHASIA SEE ED PROVIDER NOTE. CT, CTA DONE, NO BLEED, NO LVO ALTHOUGH A RIGHT VERTEBRAL ARTERY OCCLUSION/STENOSIS NOTED, SEE RADIOLOGY REPORT. NO EXCLUSION FOR TPA ALTEPLASE, ORDERED A T 1727, BP ELEVATED AND NEEDED IV LABETOLOL, PRIOR. IV TPA-ALTEPLASE GIVEN AT 1758. DOOR-TO-TPA = 92 MINUTES, OVER THE 30/45/60 BENCHMARK DUE TO CARE TEAM UNABLE TO DETERMINE ELIGIBILITY DUE TO ELEVATED GLUCOSE AND ELEVATED BP. HE PASSED SWALLOW SCREEN PRIOR TO PO. I MET WITH THE PATIENT AND HIS SISTER THIS MORNING. WE REVIEWED THE PLAN OF CARE AND I WENT OVER HIS BP, BS, LIPID PANEL, INDIVIDUAL RISK FACTORS: HTN,HLD, DM, SMOKING, ETOH, OBESITY. NO FAMILY HISTORY OF STROKE. HIS SISTER EXPLAINED THAT SHE CALLED 911 AFTER DISCOVERING HIS SPEECH WAS SLURRED AND LEFT SIDED WEAKNESS. HE DROVE FROM [place] WITH SYMPTOMS, HE HAD NO IDEA HE WAS HAVING A STROKE, HE IS NON-COMPLIANT WITH ALL OF HIS MEDICATIONS AND DOES NOT MANAGE HIS RISK FACTORS. I STRESS THE IMPORTANCE OF MANAGING THESE AND HIS PROGNOSIS COULD BE GOOD. I PROVIDED ENCOURAGEMENT AND GUIDANCE. I SPENT TIME ON EACH OF THE ABOVE RISK FACTORS AND WHY EACH ONE MATTERS FOR FUTURE STROKE PREVENTION. I ANSWERED ALL OF HIS QUESTIONS. MRI PENDING. I WILL FOLLOW UP WITH HIM AFTER THE MRI.
--- NOTE | 2022-03-28 11:28 | MHC.CM.PN ---
PATIENT CURRENTLY ON WAY FOR XRAY T/W WAS ABLE TO OBTAIN SOME INFORMATION PRIOR TO HE IS FULLY INDEPENDENT NO PCP AND MAY NEED ASSIST WITH SECURING ONE. HE IS AWARE THAT HE IS A POSSIBLE TRANSFER FROM ICU TODAY CM TO RETURN FOR COMPLETION. NO HCP IS ON FILE AND THIS CAN BE DISCUSSED WELL.
--- NOTE | 2022-03-28 12:10 | P.CNNE_ITS ---
History of Present Illness Data of Consult Service Date: 03/28/22 Primary Care Provider: None Physician HPI Reason for consult: slurred speech and left hemiparesis 56 years old man with underlying history of hypertension diabetes probably not taking care of these conditions in appropriate manner developed slurred speech and left-sided weakness while he was in [place], about an hour away. He did not seek any immediate medical attention there and decided to drove to this area. When he arrived home, he still was with these conditions and talk to his family who stated that he should right away go to hospital but he insisted to use the restroom. While he came out of the car he noticed that his left leg was weak. [facility] was called and he was brought here and in emergency room he was noted to have left-sided weakness and slurred speech and after discussion with emergency room physician intravenous tPA was given. Now he was feeling much better with resolution of symptoms. Review of Systems Review of Systems: No recent trauma or seizure-like episode PMFSH Past Medical History Medical History Diabetes Hypertension Social History Social History Household Members: Family Housing: House Do you presently have visiting nurse or other home services: No Alcohol intake: current Alcohol intake frequency: a few times a month Alcohol type: hard liquor Patient Tobacco Use Status: Current someday Tobacco user Tobacco use type: Cigarette Cigarette Packs Per Day: 0.5 Cigarettes Per Day: 10.0 Years Smoked: 30 Smoked in Last 30 Days: Yes e-Cigarette/Vaping Use: Never Used Patient Interested in Nicotine Replacement: No Patient Given Instructions on How to Stop Smoking: No Second Hand Smoke Exposure: No Use of substances other than those prescribed or required for medical reasons: No Substance Use Type: Caffiene Substance Use Frequency: Occasionally Last Used Substance: Days (ago) Have you been hit, kicked, punched, or otherwise hurt by someone within the past year? If so, by whom?: No Do you feel safe in your current relationship?: No Current Relationship Is there a partner from a previous relationship who is making you feel unsafe now?: No Spiritual Healthcare Practices: previously born again Jainism Christianity Healthcare Practices: none Advance Directives: No Advance Directives Information Provided: Yes Advance Directives on File: No Do you have thoughts of harming others: None Do you have a plan to hurt others: No Plan Recently lost weight without trying: No Eating poorly because of decreased appetite: No Nutrition Risks: No Nutritional Risk Poor oral hygiene: Yes Meds Allergies Allergy/AdvReac Type Severity Reaction Status Date / Time No Known Allergies Allergy Verified 03/27/22 17:10 Active Medications: Current Medications Atorvastatin Calcium (Atorvastatin Calcium 80 Mg Tablet) 80 mg PO BEDTIME [facility] Last Admin: 03/27/22 21:40 Dose: 80 mg Dextrose (Dextrose 50 % 25 Gm/50 Ml Syringe) 25 gm IVPUSH Q15M PRN; Protocol PRN Reason: per Hypoglycemia Standing Ord. Glucose (Glucose Gel 15 Gm Gel..Gram.) 15 gm PO Q15M PRN; Protocol PRN Reason: per Hypoglycemia Standing Ord. Insulin Human Lispro (Insulin Lispro 100 Unit/Ml 3 Ml Vial) 0 unit SUBCUT Q6H DEMETRIS; Protocol Sodium Chloride (0.9 % Sodium Chloride Flush 3 Ml Syringe) 3 ml IVFLUSH QSHIFT [facility] Last Admin: 03/28/22 07:57 Dose: 3 ml Home Medications Medication Instructions Recorded Confirmed Last Taken Type No Known Home Meds 03/27/22 03/27/22 Unknown History Physical Exam Vital Signs: Vital Signs: Last Vital Signs Temp 99.7 F 03/28/22 08:00 Pulse 79 03/28/22 10:00 Resp 12 03/28/22 10:00 BP 146/69 H 03/28/22 10:00 Pulse Ox 94 03/28/22 10:00 O2 Del Method 03/28/22 10:00 BMI result Body Mass Index 33.5 Neuro: Other: he was alert and awake with normal spontaneity of speech fluency comprehension and affect. Speech was normal. Visual betts are full. Face was symmetrical. Tongue was midline. There was no pronator drift. [id number] testing was normal. Deep tendon reflexes were trace to absent with flexor plantars. He was able to get up and walk around the bed with no significant abnormality. Results Labs CBC & Chem 7: 03/28/22 05:59 03/28/22 05:59 Labs: Short CBC 03/27/22 03/28/22 Range/Units 17:49 05:59 WBC 6.7 7.2 (4.8-10.8) X10*3/uL Hgb 16.4 14.8 (14.0-18.0) g/dl Hct 45.5 40.7 L (42.0-52.0) % Plt Count 203 164 (160-400) X10*3/uL BMP 03/27/22 03/28/22 17:49 05:59 Sodium 136 139 Potassium 4.0 3.6 Chloride 97 103 Carbon Dioxide 30 H 26 BUN 5 L 6 L Creatinine 1.18 0.77 Calcium 8.9 8.6 Cardiac Enzymes 03/27/22 Range/Units 17:49 Total Creatine Kinase 61 (38-174) U/L Liver Function 03/27/22 Range/Units 17:49 Total Bilirubin 0.6 (0.0-1.0) mg/dL Direct Bilirubin 0.3 (0.0-0.5) mg/dL AST 20 (5-37) U/L ALT 20 (0-40) U/L Alkaline Phosphatase 113 (39-117) U/L Albumin 3.8 (3.5-5.0) g/dL Urine 03/27/22 Range/Units 18:23 Urine Color Yellow Urine Appearance Clear Urine pH 7.0 (5.0-9.0) Ur Specific [place] >= 1.030 H (1.005-1.025) Urine Protein Negative (Neg-Trace) mg/dL Urine Glucose (UA) >=1000 H (Negative) mg/dL His noncontrast head CT revealed moderately severe hypodense signal ab normality suggestive of chronic microvascular ischemic changes. His CTA of brain and neck revealed no significant finding in the brain or skull but bilateral vertebral artery stenosis extra cranially. Assessment and Plan (1) Acute left-sided weakness: Status: Acute 56 years old man with uncontrolled hypertension and uncontrolled diabetes who presented in emergency room with relatively acute onset of slurred speech and left-sided weakness. He received intravenous tPA and now his symptoms were resolved. His imaging revealed chronic microvascular ischemic changes and bilateral vertebral artery stenosis. Acute stroke was a likely possibility but his blood sugar on presentation was quite high, which sometime could result in false impression of a stroke. An MRI of brain without contrast is recommended for evaluation. I had noted that he did have couple of images in MRI machine suggesting that he might be claustrophobic. He could be given a dose of lorazepam to help him out. Otherwise mainstay of management at this time is anti-platelet therapy after 24 hours of tPA including baby aspirin and clopidogrel 75 mg daily, statin, and blood pressure control. He should be advised to take care of his medical conditions to avoid any potential future strokes, for which he carried high risk of. Procedures Date of Service Date of Service: 03/28/22
--- NOTE | 2022-03-28 12:14 | P.PNCC_ITS ---
Subjective Subjective Date of Service: 03/28/22 Interval History: Mr. Bal was admitted to ICU last night after tPA in the ED for presumed stroke. 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 BIBA to the ED yesterday afternoon after developed being left-sided numbness, weakness, and difficulty speaking.? The patient drove home feeling this way even though he had difficulty lifting the left upper extremity as well as the left lower extremity.? His sister noticed that he was not himself and called 911. ?Head CT negative.? CTA showed high grade posterior stenosis.? NIH stroke score 8.? Dr. Napier was consulted and the patient was given tPA.? ?POC was 445, he was also given insulin. Shortly after tPA, the patient?s deficits improved fairly quickly. ?This morning, the patient was examined by Physical Therapy.? He was able to walk without difficulty and without any balance problems.? Last night in the ICU, after already having almost full return of left-sided motor function, he was still unsteady on [id number] testing.? This morning his FTN testing is just about normal. On exam, he has no gross CN or peripheral motor deficits.? Breathing easy with sat 97% on room air.? Heart rate is 79, blood pressure 146/69, the patient is afebrile.? No jugular venous distention with the head of bed at about 30 degrees.? Chest clear to auscultation. LABORATORY DATA:? Below.? Notably, random glucose down to 261 this morning BUN /creatinine 6/0.77, bicarb 26.? Hemoglobin A1c 12.4. IMPRESSION: 1 Acute ischemic stroke with left-sided hemiparesis which has improved status post tPA. 2. 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 3. Medical noncompliance 4. Uncontrolled hypertension and noncompliance 5. Uncontrolled diabetes with noncompliance 6. Hyperlipidemia 7. Tobacco and alcohol abuse Stable [place] [facility]Will sign out hospitalists. Critical Care Time (minutes): 0 Physical Exam Vital Signs: Vital Signs: Last Vital Signs Temp 99.7 F 03/28/22 08:00 Pulse 79 03/28/22 10:00 Resp 12 03/28/22 10:00 BP 146/69 H 03/28/22 10:00 Pulse Ox 94 03/28/22 10:00 O2 Del Method 03/28/22 10:00 BMI result Body Mass Index 33.5 Objective Data Labs CBC & Chem 7: 03/28/22 05:59 03/28/22 05:59 Labs: Laboratory Results - last 24 hr 03/27/22 03/27/22 03/27/22 17:06 17:43 17:49 WBC 6.7 RBC 5.59 Hgb 16.4 Hct 45.5 MCV 81.4 MCH 29.3 MCHC 36.0 RDW 11.8 Plt Count 203 MPV 8.6 L Immature Gran % (Auto) 0.3 Neut % (Auto) 71.7 Lymph % (Auto) 15.8 L Petroleum % (Auto) 6.4 Eos % (Auto) 5.1 H Baso % (Auto) 0.7 Lymph # (Auto) 1.1 L Petroleum # (Auto) 0.4 Eos # (Auto) 0.3 Baso # (Auto) 0.1 Abs Immat Gran (auto) 0.02 Absolute Neuts (auto) 4.8 Absolute Nucleated RBC 0.000 Nucleated RBC % (auto) 0.0 PT Whole Blood PT 12.5 INR Whole Blood INR 1.0 APTT Sodium Potassium Chloride Carbon Dioxide Anion Gap BUN Creatinine Estim Creat Clear Calc Estimated GFR POC Glucose 445 H* Random Glucose Estimat Average Glucose Hemoglobin A1c % Calcium Magnesium Total Bilirubin Direct Bilirubin AST ALT Alkaline Phosphatase Total Creatine Kinase Troponin I High Sens Total Protein Albumin Triglycerides Cholesterol LDL Cholesterol, Calc HDL Cholesterol Urine Color Urine Appearance Urine pH Ur Specific [place] Urine Protein Urine Glucose (UA) Urine Ketones Urine Blood Urine Nitrite Ur Leukocyte Esterase Urine RBC Urine WBC Ur Squamous Epith Cells Urine Bacteria Hyaline Casts 03/27/22 03/27/22 03/27/22 17:49 17:49 17:49 WBC RBC Hgb Hct MCV MCH MCHC RDW Plt Count MPV Immature Gran % (Auto) Neut % (Auto) Lymph % (Auto) Petroleum % (Auto) Eos % (Auto) Baso % (Auto) Lymph # (Auto) Petroleum # (Auto) Eos # (Auto) Baso # (Auto) Abs Immat Gran (auto) Absolute Neuts (auto) Absolute Nucleated RBC Nucleated RBC % (auto) PT 10.9 Whole Blood PT INR 1.0 Whole Blood INR APTT 30.6 Sodium 136 Potassium 4.0 Chloride 97 Carbon Dioxide 30 H Anion Gap 13 BUN 5 L Creatinine 1.18 Estim Creat Clear Calc 85.6 Estimated GFR > 60 POC Glucose Random Glucose 435 H* Estimat Average Glucose Hemoglobin A1c % Calcium 8.9 Magnesium 1.9 Total Bilirubin 0.6 Direct Bilirubin 0.3 AST 20 ALT 20 Alkaline Phosphatase 113 Total Creatine Kinase 61 Troponin I High Sens 19.3 Total Protein 6.4 L Albumin 3.8 Triglycerides Cholesterol LDL Cholesterol, Calc HDL Cholesterol Urine Color Urine Appearance Urine pH Ur Specific [place] Urine Protein Urine Glucose (UA) Urine Ketones Urine Blood Urine Nitrite Ur Leukocyte Esterase Urine RBC Urine WBC Ur Squamous Epith Cells Urine Bacteria Hyaline Casts 03/27/22 03/27/22 03/27/22 17:49 18:23 21:13 WBC RBC Hgb Hct MCV MCH MCHC RDW Plt Count MPV Immature Gran % (Auto) Neut % (Auto) Lymph % (Auto) Petroleum % (Auto) Eos % (Auto) Baso % (Auto) Lymph # (Auto) Petroleum # (Auto) Eos # (Auto) Baso # (Auto) Abs Immat Gran (auto) Absolute Neuts (auto) Absolute Nucleated RBC Nucleated RBC % (auto) PT Whole Blood PT INR Whole Blood INR APTT Sodium Potassium Chloride Carbon Dioxide Anion Gap BUN Creatinine Estim Creat Clear Calc Estimated GFR POC Glucose 303 H Random Glucose Estimat Average Glucose 309 Hemoglobin A1c % 12.4 Calcium Magnesium Total Bilirubin Direct Bilirubin AST ALT Alkaline Phosphatase Total Creatine Kinase Troponin I High Sens Total Protein Albumin Triglycerides Cholesterol LDL Cholesterol, Calc HDL Cholesterol Urine Color Yellow Urine Appearance Clear Urine pH 7.0 Ur Specific [place] >= 1.030 H Urine Protein Negative Urine Glucose (UA) >=1000 H Urine Ketones Negative Urine Blood Negative Urine Nitrite Negative Ur Leukocyte Esterase Negative Urine RBC 0-2 Urine WBC 0-5 Ur Squamous Epith Cells 0-2 Urine Bacteria None Seen Hyaline Casts 0-2 03/28/22 03/28/22 03/28/22 00:25 05:24 05:59 WBC 7.2 RBC 4.98 Hgb 14.8 Hct 40.7 L MCV 81.7 MCH 29.7 MCHC 36.4 H RDW 11.8 Plt Count 164 MPV 8.8 L Immature Gran % (Auto) 0.4 Neut % (Auto) 69.1 Lymph % (Auto) 15.5 L Petroleum % (Auto) 8.2 Eos % (Auto) 6.2 H Baso % (Auto) 0.6 Lymph # (Auto) 1.1 L Petroleum # (Auto) 0.6 Eos # (Auto) 0.5 H Baso # (Auto) 0.0 Abs Immat Gran (auto) 0.03 Absolute Neuts (auto) 5.0 Absolute Nucleated RBC 0.000 Nucleated RBC % (auto) 0.0 PT Whole Blood PT INR Whole Blood INR APTT Sodium Potassium Chloride Carbon Dioxide Anion Gap BUN Creatinine Estim Creat Clear Calc Estimated GFR POC Glucose 329 H 256 H Random Glucose Estimat Average Glucose Hemoglobin A1c % Calcium Magnesium Total Bilirubin Direct Bilirubin AST ALT Alkaline Phosphatase Total Creatine Kinase Troponin I High Sens Total Protein Albumin Triglycerides Cholesterol LDL Cholesterol, Calc HDL Cholesterol Urine Color Urine Appearance Urine pH Ur Specific [place] Urine Protein Urine Glucose (UA) Urine Ketones Urine Blood Urine Nitrite Ur Leukocyte Esterase Urine RBC Urine WBC Ur Squamous Epith Cells Urine Bacteria Hyaline Casts 03/28/22 05:59 WBC RBC Hgb Hct MCV MCH MCHC RDW Plt Count MPV Immature Gran % (Auto) Neut % (Auto) Lymph % (Auto) Petroleum % (Auto) Eos % (Auto) Baso % (Auto) Lymph # (Auto) Petroleum # (Auto) Eos # (Auto) Baso # (Auto) Abs Immat Gran (auto) Absolute Neuts (auto) Absolute Nucleated RBC Nucleated RBC % (auto) PT Whole Blood PT INR Whole Blood INR APTT Sodium 139 Potassium 3.6 Chloride 103 Carbon Dioxide 26 Anion Gap 14 BUN 6 L Creatinine 0.77 Estim Creat Clear Calc 131.2 Estimated GFR > 60 POC Glucose Random Glucose 261 H D Estimat Average Glucose Hemoglobin A1c % Calcium 8.6 Magnesium Total Bilirubin Direct Bilirubin AST ALT Alkaline Phosphatase Total Creatine Kinase Troponin I High Sens Total Protein Albumin Triglycerides 186 Cholesterol 179 LDL Cholesterol, Calc 106 HDL Cholesterol 36 Urine Color Urine Appearance Urine pH Ur Specific [place] Urine Protein Urine Glucose (UA) Urine Ketones Urine Blood Urine Nitrite Ur Leukocyte Esterase Urine RBC Urine WBC Ur Squamous Epith Cells Urine Bacteria Hyaline Casts Quality Stroke Does the patient have a stroke diagnosis?: Yes Reason for No Anti-thrombotic by Day Two: Drug treatment not indicated VTE Prior VTE?: No VTE Risk Level:: Medical - low VTE Device Contraindication: Treatment Not Indicated VTE Drug Contraindication: N/A - Med Ordered
[2022-03-28 12:26] LABS: Glucose, Whole Blood 283 mg/dL (60-115)
--- NOTE | 2022-03-28 16:29 | PC.NURSE ---
Addendum entered by Jeff Wells RN 03/28/22 18:33: pt stated he does not take insulin at home. [facility] - [facility] not had [facility] filled since 2020, pt was on hydrochlorothiazide 12.5mg daily and glipizide 5mg daily . Addendum entered by Jeff Wells RN 03/28/22 17:54: pt stated he takes 50mg benadryl at home , director of research informed Original Note: report taken from BUSINESS TEAM LEADER. L pupil noted to be larger than R, both briskly reactive. L hand grasp noted to be weaker than R. LLE drift. Pt tongue deviates to the left. pt c/o itching to chest requesting benadryl, director of research informed.
[2022-03-28] MEDS: diphenhydrAMINE HCL 25 MG CAPSULE PO (16:40)
[2022-03-28 16:58] LABS: Glucose, Whole Blood 326 mg/dL (60-115)
[2022-03-28] MEDS: Atorvastatin Calcium 80 MG TABLET PO (21:26)
[2022-03-29] VITALS: BP 170/87; PULSE 92; RESP 18; TEMP 37.1; O2SAT 95
[2022-03-29 04:43] LABS: Glucose, Whole Blood 311 mg/dL (60-115)
[2022-03-29 06:00] VITALS: BMI 33.3
[2022-03-29 07:18] LABS: Glucose, Whole Blood 270 mg/dL (60-115)
[2022-03-29 07:30] VITALS: BP 168/96; PULSE 89; RESP 20; TEMP 36.5; O2SAT 96
[2022-03-29] MEDS: Insulin Lispro 100 UNIT/ML 3 ML VIAL SUBCUT ×2 (07:31→11:53)
--- NOTE | 2022-03-29 10:32 | P.DS_ITS ---
DS: Providers Provider Date of Service: 03/29/22 Date of admission: 03/27/22 20:30 Primary care physician: None Physician Consults: 03/27/22 17:10 Consult to Neurology Stat Consulting Provider: [facility] Reason for consultation: stroke Has provider been notified: Yes Attending physician on discharge: Melissa Linares Discharging clinician: Fauzia Alfonso DS: Diagnosis Discharge Diagnosis (1) Acute left-sided weakness: Status: Acute DS: Summary Hospital Course Hospital Course: History and physical as per admitting provider 56-year-old Patient with underlying history of hypertension, hyperlipidemia, diabetes, noncompliance with medication intake or medical care, who has a 40 pack-year history of tobacco consumption, drinks alcohol on the weekends, presents to us after being seen in the emergency room.? 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 The patient drove from [place] to [place] and went home feeling this way even though he had difficulty lifting the left upper extremity as well as the left lower extremity.? His sister noticed that he was not himself and called 911.? The patient was transferred via EMS to the hospital, he arrived around 17:00 his blood pressure was slightly elevated receive labetalol. ?His workup included a CT scan of the head, CTA head and neck all of which showed no hemorrhage and no large emboli.? At the time the NIH score was 8.? Dr. Napier was consulted the patient received tPA at 17:56.? His blood sugar was over 400, he was given IV insulin. ?Since tPA administration, the patient has being significantly better, he states that his strength has come back he feels much better than before.? During my interview the patient denies any double or blurred vision, headache, no more numbness or tingling, no trouble speaking, denies any other symptomatology at this point as described below.? He does admit that he is noncompliant with his medications, he continues to drink on the weekends and smokes daily . ? Admitted to the ICU for acute stroke with dysarthria, left-sided weakness, tPA administered with improvement of deficits fairly quickly. Seen and evaluated by Physical therapy with recommendation for no inpatient or outpatient physical therapy necessary. Started on aspirin, statin and lisinopril for blood pressure control. Hemodynamically stable. Hemoglobin A1c noted to be 12.4, noncompliance with medications. Treated with insulin during admission, started on metformin 500 mg daily for outpatient treatment and plan for follow-up with primary care provider once established, check blood sugars before and after meals and at bedtime and record. Acute stroke Hypertension Diabetes mellitus Time Spent with Patient Time attestation: Total time spent providing and/or coordinating discharge services: Discharge coordination time: Greater than 30 minutes Quality: Safe Use of Opioids Does Pt have an Active Cancer Diagnosis on the Problem List?: No Quality: Stroke Does the patient have a stroke diagnosis?: No Physical Exam Vital Signs: Vital Signs: Last Vital Signs Temp 97.7 F 03/29/22 07:30 Pulse 89 03/29/22 07:30 Resp 20 03/29/22 07:30 BP 168/96 H 03/29/22 07:30 Pulse Ox 96 03/29/22 07:30 O2 Del Method 03/29/22 07:30 BMI result Body Mass Index 33.3 Appearing in no acute distress head is normocephalic atraumatic eyes pupils are PERRLA sclera is anicteric mouth throat mucous membranes are intact and moist neck is supple no lymphadenopathy, no JVD noted lung sounds are clear to auscultation heart regular rate rhythm, clear S1, S2 positive bowel sounds, abdomen is soft, nontender neuro patient is alert x3, no focal deficits DS: Data Data Completed and Pending Labs on day of discharge: Laboratory Results - last 24 hr 03/28/22 03/28/22 03/28/22 12:23 16:47 21:22 POC Glucose 283 H 326 H 311 H 03/29/22 07:12 POC Glucose 270 H Discharge Plan Discharge Anticipated Discharge Date/Time: 03/29/22 10:28 Patient Disposition: Home, Self-Care Discharge Diagnosis: Stroke Discharge Medications: New atorvastatin 80 mg Tablet 80 mg PO BEDTIME Qty: 30 0RF aspirin 81 mg Tablet,Delayed Release (Dr/Ec) 81 mg PO DAILY Qty: 30 0RF lisinopril 2.5 mg tablet 2.5 mg PO DAILY Qty: 30 0RF Diet: Advance to usual diet Activity on Discharge: As tolerated Stand Alone Forms: Patient Portal Discharge page Care Plan Goals: Stop smoking and using tobacco Weight loss Follow-up regularly with a primary care provider Health Concerns: Stroke Plan of Treatment: Follow-up with primary care provider as an outpatient Take all medications as prescribed You have been started on aspirin and atorvastatin He had been started on a low-dose medication for your blood pressure, please follow-up with primary care provider to monitor medications and doses Assessment: See discharge summary
[2022-03-29] MEDS: lisinopriL 2.5 MG TABLET PO (11:02)
[2022-03-29 12:00] VITALS: BP 174/100; PULSE 86; RESP 20; TEMP 37.3; O2SAT 95
[2022-03-29 12:38] VITALS: BP 148/92
--- NOTE | 2022-03-29 12:49 | PC.NURSE ---
Glucometer teaching completed. Patient nervous about poking self, but stated family is around to help him. Patient verbalized understanding of glucometer and stated he could explain to family member if needed.
--- NOTE | 2022-03-29 12:51 | MHC.CM.PN ---
Patient has been medically cleared for dc to home today, self care. CM has provided Patient with a copy of the PCP list .
--- NOTE | 2022-03-29 14:46 | PC.NURSE ---
Alert and oriented. Denies pain, VSS, afebrile, no acute resp. distress noted. New order to discharge patient home. Went over discharge instructions, medication administrations with patient, Verbalized understanding back. Reminded patient to clam picker his prescriptions from the pharmacy and to check his blood sugar as ordered. Refused w/c services to the lobby, ambulated independently, left with sister via car.
== END 2022-03-29 14:49 | disposition home or self-care (01) | DRG 45 ==
LOC: HO.ED 19:08 → HO.EDOVER 20:48 → HO.ICU 20:50 → HO.IMC 03-28 14:19
PROVIDERS: Physician Assistant Medical; Admitting Provider Physician Assistant Medical; Emergency Provider Student in an Organized Health Care Education/Training Program; Visit Provider Nurse Practitioner Acute Care
DX: I63.9 Cerebral infarction, unspecified (principal); G81.94 Hemiplegia, unspecified affecting left nondominant side; E11.65 Type 2 diabetes mellitus with hyperglycemia; F17.210 Nicotine dependence, cigarettes, uncomplicated; R29.709 NIHSS score 9; I10 Essential (primary) hypertension; I65.03 Occlusion and stenosis of bilateral vertebral arteries; Z71.6 Tobacco abuse counseling; Z91.14 Patient's other noncompliance with medication regimen; Z79.84 Long term (current) use of oral hypoglycemic drugs; Z79.899 Other long term (current) drug therapy
CPT/HCPCS: 36415; 70450; 70496; 70498; 70551; 71045; 73590; 80048; 80061; 80076; 81001; 82550; 82947; 83036; 83735; 84484; 85025; 85610; 85730; 93005; 93306; 96361; 96374; 97162; 97165; 99285; J2997; Q9967